=== PATIENT | male | born 1990 | race Caucasian/White ===

== ENCOUNTER 2016-02-29 14:45 | Emergency (ER) | payer OTHER ==
[2016-02-29 15:10] VITALS: BP 121/54
--- NOTE | 2016-02-29 15:50 | UC ---
Throat Pain/Nasal Alex HPI - HPI Summary HPI Summary: woke with ST this AM. Body aches, fatigue, malaise. Mild sinus drainage. No cough. No vomiting or diarrhea. Painful to eat or drink. 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 Negative: Fever, Vomiting, Rash - Epiglottits Risk Factors Epiglottis Risk Factors: Negative - Allergies/Home Medications Allergies/Adverse Reactions: Allergies Allergy/AdvReac Type Severity Reaction Status Date / Time No Known Allergies Allergy Verified 02/29/16 15:10 Home Medications: Home Medications Ibuprofen TAB* [Motrin TAB* 800 MG] 800 mg PO ONCE 02/29/16 [History Confirmed 02/29/16] PMH/Surg Hx/FS Hx/Imm Hx Respiratory History Of: Reports: Asthma - Surgical History Surgical History: None - Family History Known Family History: Positive: Respiratory Disease - asthma - Social History Occupation: Employed Full-time Lives: With Family Alcohol Use: None Substance Use Type: None Smoking Status (MU): Heavy Every Day Tobacco Smoker Review of Systems Constitutional: Chills, Fatigue Skin: Negative Eyes: Negative ENT: Sore Throat, Nasal Discharge Respiratory: Negative Cardiovascular: Negative Gastrointestinal: Negative Genitourinary: Negative Motor: Negative Neurovascular: Negative Musculoskeletal: Myalgia Neurological: Negative Psychological: Negative All Other Systems Reviewed And Are Negative: Yes Physical Exam Triage Information Reviewed: Yes Appearance: Well-Appearing, No Pain Distress, Well-Nourished Vital Signs: Initial Vital Signs Temp 98.4 F 02/29/16 15:05 Pulse 79 02/29/16 15:05 Resp 16 02/29/16 15:05 BP 121/54 02/29/16 15:05 Pulse Ox 99 02/29/16 15:05 Vital Signs Reviewed: Yes Eye Exam: Normal Eyes: Positive: Conjunctiva Clear ENT: Positive: Hearing grossly normal, Pharyngeal erythema, TMs normal, Tonsillar swelling, Tonsillar exudate. Negative: Nasal congestion, Nasal drainage, Trismus, Muffled/hoarse voice Neck exam: Normal Neck: Positive: Supple, Nontender, No Lymphadenopathy Respiratory Exam: Normal Respiratory: Positive: Lungs clear, Normal breath sounds, No respiratory distress, No accessory muscle use Cardiovascular Exam: Normal Musculoskeletal Exam: Normal Neurological Exam: Normal Psychological Exam: Normal Skin Exam: Normal Diagnostics - Laboratory Diagnostic Studies Completed/Ordered: strep pos Throat Pain/Nasal Course/Dx - Differential Dx/Diagnosis Differential Diagnosis/HQI/PQRI: Pharyngitis, URI Provider Diagnoses: Strep throat Discharge - Discharge Plan Condition: Stable Disposition: HOME Prescriptions: Amoxicillin SUSP* 2 teasp PO BID #200 ml Patient Education Materials: Strep Throat (ED) Forms: *Work Release Referrals: DEBORAH Gama [Primary Care Provider] -
== END 2016-02-29 16:06 | disposition home or self-care (01) ==
LOC: UCCORT 14:45
DX: J02.0 Streptococcal pharyngitis (principal); J45.909 Unspecified asthma, uncomplicated; F17.200 Nicotine dependence, unspecified, uncomplicated
CPT/HCPCS: 87651; 99202; G0463

== ENCOUNTER 2016-08-13 15:36 | Emergency (ER) | payer OTHER ==
[2016-08-13 15:50] VITALS: BP 124/61
--- NOTE | 2016-08-13 15:59 | UC ---
HPI Wound/Suture Re-check - HPI Summary HPI Summary: complaint of sore throat that started 2 days ago last night pain worsened fever and chills yesterday intermittent headache slight cough and congestion taking ibuprofen with minimal relief - History Of Current Complaint Chief Complaint: UCGeneralIllness Stated Complaint: SORE THROAT Hx Obtained From: Patient - Allergies/Home Medications Allergies/Adverse Reactions: Allergies Allergy/AdvReac Type Severity Reaction Status Date / Time No Known Allergies Allergy Verified 08/13/16 15:50 PMH/Surg Hx/FS Hx/Imm Hx Previously Healthy: Yes - Surgical History Surgical History: None - Family History Known Family History: Positive: Respiratory Disease - asthma Negative: Cardiac Disease, Hypertension, Diabetes - Social History Occupation: Employed Full-time Lives: With Family Alcohol Use: None Substance Use Type: None Smoking Status (MU): Heavy Every Day Tobacco Smoker Cessation Counseling: Patient Advised to Stop Review of Systems Constitutional: Fever, Chills Skin: Negative Eyes: Negative ENT: Sore Throat, Nasal Discharge Respiratory: Cough Cardiovascular: Negative Gastrointestinal: Negative Genitourinary: Negative Motor: Negative Neurovascular: Negative Musculoskeletal: Negative Neurological: Negative Psychological: Negative All Other Systems Reviewed And Are Negative: Yes Physical Exam Triage Information Reviewed: Yes Appearance: Well-Nourished, Ill-Appearing Vital Signs: Initial Vital Signs Temp 99.6 F 08/13/16 15:47 Pulse 88 08/13/16 15:47 Resp 16 08/13/16 15:47 BP 124/61 08/13/16 15:47 Pulse Ox 96 08/13/16 15:47 Vital Signs Reviewed: Yes Eyes: Positive: Conjunctiva Clear ENT: Positive: Pharyngeal erythema, Nasal drainage, Tonsillar swelling, Tonsillar exudate - 4+ Dental: Positive: Cervical Lymphadenopathy Respiratory: Positive: Lungs clear, Normal breath sounds, No respiratory distress, No accessory muscle use Cardiovascular: Positive: RRR, No Murmur, Pulses Normal Abdomen Description: Positive: Nontender, Soft Bowel Sounds: Positive: Present Musculoskeletal Exam: Normal Neurological: Positive: Alert Psychological Exam: Normal Skin Exam: Normal Course/Dx - Course Course Of Treatment: exam completed. negative for strep. sending throat culture- followup with PCP - Differential Dx - Laceration/Wound Differential Diagnoses: Other - pharyngitis, tonsilitis Provider Diagnoses: tonsillitis Discharge - Discharge Plan Condition: Stable Disposition: HOME Patient Education Materials: Tonsillitis (ED) Referrals: DEBORAH Gama [Primary Care Provider] - Additional Instructions: Increase fluids and rest Take acetaminophen or ibuprofen for fever or pain Please review your discharge instructions. If your symptoms do not improve please call your primary care provider or return to urgent care. TONSILLITIS What is Tonsillitis? Tonsillitis is an infectious condition with symptoms characterized by inflamed tonsils, fever, painful swallowing, sore throat, and a slight voice change. Other symptoms include a white or yellow coating on the tonsils, swollen lymph nodes, headache, and bad breath. Nausea, vomiting, and abdominal pain may occur in younger children. Throat infection (pharyngitis) often occurs along with tonsillitis. Tonsillitis may be caused by either viruses or bacteria, and often the symptoms are the same no matter which germ is causing the infection. Bacterial tonsillitis can be treated with antibiotics, but viral tonsillitis cannot. Sometimes healthcare providers differentiate between the two by taking a throat culture (a painless swab of the back of the throat) or a quick step test and send it to the lab. Eighty-five percent of throat cultures are negative for strep; the majority of infections are caused by a virus. Symptoms Might Include: Mild to severe sore throat and difficulty swallowing Fever Swollen, tender neck glands Headache Muscle and joint pain Loss of appetite Ear ache Breathing through the mouth Nausea or vomiting How Long Will My Symptoms Last? When tonsillitis is caused by Group A streptococci, fever usually stops within 48 hours, and the sore throat disappears soon afterward. With antibiotic treatment, the illness is usually cured within 1 week, but it may take several weeks for the tonsils and swollen glands to return to normal size. When tonsillitis is caused by viruses, the length of illness depends on which virus is involved. Most people are almost completely recovered within 1 week. Contagiousness: All forms of tonsillitis are contagious. Tonsillitis usually spreads from person to person by contact with the throat or nasal fluids of someone who is already infected. Drinking glasses and eating utensils should be kept separate from those of other family members and should be washed with hot soapy water, or washed in the mold designer. All family members should was their hand frequently. If you have a cough, be sure to cover your mouth when coughing. Place used tissues directly in the garbage can. Revised 2015 Page 2 of 2
== END 2016-08-13 16:18 | disposition home or self-care (01) ==
LOC: UCCORT 15:36
DX: J03.90 Acute tonsillitis, unspecified (principal); F17.210 Nicotine dependence, cigarettes, uncomplicated
CPT/HCPCS: 87070; 87077; 87651; 99211; G0463

== ENCOUNTER 2017-04-27 13:11 | Emergency (ER) | payer OTHER ==
[2017-04-27 13:54] VITALS: BP 127/82
--- NOTE | 2017-04-27 14:49 | UC ---
UC Dental HPI - HPI Summary HPI Summary: right upper dental pain first and last upper molar are broken--pain and swelling - History of Current Complaint Chief Complaint: UCDentalProblem Stated Complaint: DENTAL PAIN Time Seen by Provider: 04/27/17 14:47 Hx Obtained From: Patient Onset/Duration: Sudden Onset, Gradual Onset, Lasting Days, Worse Since - past 24 hours Severity: Severe Pain Intensity: 10 Pain Scale Used: 0-10 Numeric Alleviating Factor(s): Nothing Related History: Previous Dental Care on Same Tooth, Swelling - Allergies/Home Medications Allergies/Adverse Reactions: Allergies Allergy/AdvReac Type Severity Reaction Status Date / Time No Known Allergies Allergy Verified 04/27/17 13:52 PMH/Surg Hx/FS Hx/Imm Hx Previously Healthy: Yes - Surgical History Surgical History: None - Family History Known Family History: Positive: Respiratory Disease - asthma Negative: Cardiac Disease, Hypertension, Diabetes - Social History Occupation: Employed Full-time Lives: With Family Alcohol Use: Occasionally Substance Use Type: None Smoking Status (MU): Heavy Every Day Tobacco Smoker Type: Cigarettes Amount Used/How Often: 1/2 ppd Review of Systems Constitutional: Negative Skin: Negative Eyes: Negative ENT: Dental Pain Respiratory: Negative Cardiovascular: Negative Gastrointestinal: Negative Genitourinary: Negative Motor: Negative Neurovascular: Negative Musculoskeletal: Negative Neurological: Negative Psychological: Negative Is Patient Immunocompromised?: No All Other Systems Reviewed And Are Negative: Yes Physical Exam Triage Information Reviewed: Yes Completion Of Physical Exam Limited Due To: Altered Mental Status, Dementia, Extremis Appearance: Well-Appearing, Well-Nourished, Pain Distress Vital Signs: Initial Vital Signs Temp 98.2 F 04/27/17 13:50 Pulse 78 04/27/17 13:50 Resp 14 04/27/17 13:50 BP 127/82 04/27/17 13:50 Pulse Ox 100 04/27/17 13:50 Vital Signs Reviewed: Yes Eye Exam: Normal Eyes: Positive: Conjunctiva Clear ENT Exam: Normal ENT: Positive: Normal ENT inspection, Hearing grossly normal, Pharynx normal, Dental tenderness, Uvula midline. Negative: Nasal congestion, Nasal drainage, Tonsillar swelling, Tonsillar exudate, Trismus, Muffled voice, Hoarse voice, Sinus tenderness Dental Exam: Other Dental: Positive: Percussion Tenderness @ - number1, Dental Fracture @ - tooth number 4, Abscess @ - number 1 Neck exam: Normal Neck: Positive: Supple, Nontender Respiratory Exam: Normal Respiratory: Positive: Chest non-tender, Lungs clear, Normal breath sounds, No respiratory distress, No accessory muscle use Cardiovascular Exam: Normal Cardiovascular: Positive: RRR, No Murmur, Pulses Normal, Brisk Capillary Refill Musculoskeletal Exam: Normal Musculoskeletal: Positive: Strength Intact, ROM Intact, No Edema Neurological Exam: Normal Neurological: Positive: Alert, Muscle Tone Normal Psychological Exam: Normal Skin Exam: Normal Dental Complaint Course/Dx - Course Course Of Treatment: Amoxicillin, ibuprofen, hydrocodone, warm compress, follow with dentist on Saturday as planned - Differential Dx/Diagnosis Provider Diagnoses: dental pain with abscess number 1& 4 Discharge - Discharge Plan Condition: Stable Disposition: HOME Prescriptions: Amoxicillin PO (*) [Amoxicillin 500 MG CAP*] 500 mg PO TID #30 cap Hydrocodone/Acetaminophen [Hydrocodone-Acetamin 5-325 mg] 1 each PO Q6H #8 tablet MDD 4 Ibuprofen TAB* [Motrin TAB* 800 MG] 800 mg PO Q8H #30 tab Patient Education Materials: Dental Abscess (ED), Toothache (ED) Forms: *Work Release Referrals: DEBORAH Gama [Primary Care Provider] - If Needed Additional Instructions: Follow with dentist on Saturday as planned Images Dental: 1 - broken 2 - broken and painful
== END 2017-04-27 15:03 | disposition home or self-care (01) ==
LOC: UCCORT 13:11
DX: K04.7 Periapical abscess without sinus (principal); F17.210 Nicotine dependence, cigarettes, uncomplicated
CPT/HCPCS: 99212; G0463

== ENCOUNTER 2017-08-25 11:20 | Emergency (ER) | payer OTHER ==
[2017-08-25 11:49] VITALS: BP 128/63
--- NOTE | 2017-08-25 12:48 | UC ---
Dental HPI - HPI Summary HPI Summary: continues right dental pain teeth number 1 & 4. He states he went to the dentist as planned in April and they wanted to do a root canal-patient just wants teeth pulled----returns today with worsening dental pain - History of Current Complaint Hx Obtained From: Patient Onset/Duration: Lasting Weeks, Worse Since - past 2 days Pain Intensity: 9 Pain Scale Used: 0-10 Numeric Aggravating Factor(s): Heat, Cold Alleviating Factor(s): Nothing Related History: Previous Dental Care on Same Tooth, Swelling <Ellie Spencer - Last Filed: 08/25/17 13:36> <Rebecca Nolan - Last Filed: 08/26/17 19:42> - History of Current Complaint Chief Complaint: UCDentalProblem Stated Complaint: DENTAL COMPLAINT Time Seen by Provider: 08/25/17 12:37 - Allergies/Home Medications Allergies/Adverse Reactions: Allergies Allergy/AdvReac Type Severity Reaction Status Date / Time No Known Allergies Allergy Verified 08/25/17 11:46 PMH/Surg Hx/FS Hx/Imm Hx Previously Healthy: Yes - Surgical History Surgical History: None - Family History Known Family History: Positive: Respiratory Disease - asthma Negative: Cardiac Disease, Hypertension, Diabetes - Social History Occupation: Employed Full-time Lives: With Family Alcohol Use: Occasionally Substance Use Type: None Smoking Status (MU): Heavy Every Day Tobacco Smoker Type: Cigarettes Amount Used/How Often: 1 ppd Have You Smoked in the Last Year: Yes Cessation Counseling: Counseled 3+Min - 10 Min <Ellie Spencer - Last Filed: 08/25/17 13:36> Review of Systems Constitutional: Negative Skin: Negative Eyes: Negative ENT: Dental Pain Respiratory: Negative Cardiovascular: Negative Gastrointestinal: Negative Genitourinary: Negative Motor: Negative Neurovascular: Negative Musculoskeletal: Negative Neurological: Negative Psychological: Negative Is Patient Immunocompromised?: No All Other Systems Reviewed And Are Negative: Yes <Ellie Spencer - Last Filed: 08/25/17 13:36> Physical Exam Triage Information Reviewed: Yes Appearance: Well-Appearing, No Pain Distress, Thin Vital Signs: Initial Vital Signs Temp 98.9 F 08/25/17 11:43 Pulse 69 08/25/17 11:43 Resp 13 08/25/17 11:43 BP 128/63 08/25/17 11:43 Pulse Ox 98 08/25/17 11:43 Vital Signs Reviewed: Yes Eye Exam: Normal Eyes: Positive: Conjunctiva Clear ENT Exam: Normal ENT: Positive: Normal ENT inspection, Hearing grossly normal, Pharynx normal, TMs normal, Dental tenderness. Negative: Nasal congestion, Tonsillar swelling, Tonsillar exudate, Trismus, Muffled voice, Hoarse voice, Sinus tenderness, Uvula midline Dental Exam: Normal Neck exam: Normal Neck: Positive: Supple, Nontender, No Lymphadenopathy Respiratory Exam: Normal Respiratory: Positive: Chest non-tender, Lungs clear, Normal breath sounds, No respiratory distress, No accessory muscle use Cardiovascular Exam: Normal Cardiovascular: Positive: RRR, No Murmur, Pulses Normal, Brisk Capillary Refill Musculoskeletal Exam: Normal Musculoskeletal: Positive: Strength Intact, ROM Intact Neurological Exam: Normal Neurological: Positive: Alert, Muscle Tone Normal Psychological Exam: Normal Skin Exam: Normal <Ellie Spencer - Last Filed: 08/25/17 13:36> Vital Signs: Initial Vital Signs Temp 98.9 F 08/25/17 11:43 Pulse 69 08/25/17 11:43 Resp 13 08/25/17 11:43 BP 128/63 08/25/17 11:43 Pulse Ox 98 08/25/17 11:43 <Rebecca Nolan - Last Filed: 08/26/17 19:42> Dental Complaint Course/Dx - Course Course Of Treatment: Amoxicillin, hydrocodone, ibuprofen, follow with dentist, smoking cesasation information - Differential Dx/Diagnosis Provider Diagnoses: Dental abscess tooth number 1 &4, nicotine dependent <Ellie Spencer - Last Filed: 08/25/17 13:36> Discharge - Sign-Out/Discharge Documenting (check all that apply): Discharge/Admit/Transfer - Billing Disposition and Condition Condition: STABLE Disposition: Home <Ellie Spencer - Last Filed: 08/25/17 13:36> - Billing Disposition and Condition Condition: STABLE Disposition: Home <Rebecca Nolan - Last Filed: 08/26/17 19:42> - Discharge Plan Condition: Stable Disposition: HOME Prescriptions: Amoxicillin PO (*) [Amoxicillin 500 MG CAP*] 500 mg PO TID #30 cap Hydrocodone/Acetaminophen [Hydrocodone-Acetamin 5-325 mg] 1 each PO QID PRN #12 tablet MDD 4 PRN Reason: Pain Ibuprofen TAB* [Motrin TAB* 800 MG] 800 mg PO Q8H PRN #30 tab PRN Reason: Pain Patient Education Materials: How to Stop Smoking (ED), Dental Abscess (ED), Toothache (ED) Forms: *Work Release Referrals: DEBORAH Gama [Primary Care Provider] - Additional Instructions: Follow with Dentist JASON on Saturday---I have provided you with a dental list to help to find a provider Attestation Statement User Type: Provider - I was available for consult. This patient was seen by the JOE. The patient was not presented to, seen by, or examined by me. -Fer <Rebecca Nolan - Last Filed: 08/26/17 19:42>
== END 2017-08-25 13:02 | disposition home or self-care (01) ==
LOC: UCCORT 11:20
DX: K04.7 Periapical abscess without sinus (principal); F17.210 Nicotine dependence, cigarettes, uncomplicated
CPT/HCPCS: 99212; G0463